=== PATIENT | female | born 1990 | race Caucasian/White ===

== ENCOUNTER → 2019-03-05 | Outpatient (REF) | payer OTHER, SELFPAY ==
[2019-03-05 13:10] LABS: BASO % 0.4 % (0.0-1.0); EOS # 0.1 10^3/uL (0.0-0.5); EOS % 0.9 % (0.0-3.0); HEMATOCRIT 41.7 % (36.0-47.0); HEMOGLOBIN 13.5 g/dl (12.0-15.5); LYMPH # 1.6 10^3/uL (1.5-5.0); LYMPH % 29.5 % (24.0-44.0); MEAN CORPUSCULAR HEMOGLOBIN 29.3 pg (27.0-33.0); MEAN CORPUSCULAR HGB CONC 32.4 g/dl (32.0-36.5); MEAN CORPUSCULAR VOLUME 90.5 fl (80.0-96.0); MONO # 0.4 10^3/uL (0.0-0.8); NEUTROPHILS # 3.3 10^3/uL (1.5-8.5); NEUTROPHILS % 60.8 % (36.0-66.0); PLATELET COUNT, AUTOMATED 278 10^3/uL (150-450); RED BLOOD COUNT 4.61 10^6/uL (4.00-5.40); WHITE BLOOD COUNT 5.5 10^3/uL (4.0-10.0)
[2019-03-05 13:44] LABS: ALBUMIN 4.2 GM/DL (3.2-5.2); ALT/SGPT 22 U/L (12-78); BILIRUBIN,TOTAL 0.7 MG/DL (0.2-1.0); BLOOD UREA NITROGEN 10 MG/DL (7-18); CALCIUM LEVEL 8.9 MG/DL (8.5-10.1); CARBON DIOXIDE LEVEL 26 MEQ/L (21-32); CHLORIDE LEVEL 104 MEQ/L (98-107); CREATININE FOR GFR 0.64 MG/DL (0.55-1.30); GLOMERULAR FILTRATION RATE > 60.0 (>60); GLUCOSE, FASTING 75 MG/DL (70-100); POTASSIUM SERUM 3.9 MEQ/L (3.5-5.1); RHEUMATOID FACTOR QUANT < 10.0 IU/ML (<15.0); SODIUM LEVEL 139 MEQ/L (136-145); TOTAL 25(OH) VITAMIN D 34.6 NG/ML (30.0-100.0); TOTAL PROTEIN 7.5 GM/DL (6.4-8.2)
[2019-03-05 14:29] LABS: ERYTHROCYTE SEDIMENTATION RATE 18 mm/hr (0-20)
[2019-03-06 14:29] LABS: ANTINUCLEAR ANTIBODIES DIRECT Negative (Negative)
== END ==
LOC: M LABNEURO 10:28
PROVIDERS: ATTEND Psychiatry & Neurology Neurology
DX: R51 Headache (principal)

== ENCOUNTER → 2019-05-01 | Outpatient (CLI) | payer OTHER | LOC: M LRY 11:39 | PROVIDERS: ATTEND Advanced Practice Midwife | DX: Z34.81 Encounter for supervision of other normal pregnancy, first trimester (principal); Z3A.08 8 weeks gestation of pregnancy ==

== ENCOUNTER → 2019-05-04 | Outpatient (CLI) | payer OTHER ==
[2019-05-04 17:06] LABS: BASO % 0.1 % (0.0-1.0); EOS # 0.1 10^3/uL (0.0-0.5); EOS % 0.6 % (0.0-3.0); HEMATOCRIT 39.5 % (36.0-47.0); HEMOGLOBIN 12.9 g/dl (12.0-15.5); LYMPH % 21.5 % (24.0-44.0); MEAN CORPUSCULAR HEMOGLOBIN 29.7 pg (27.0-33.0); MEAN CORPUSCULAR HGB CONC 32.7 g/dl (32.0-36.5); MEAN CORPUSCULAR VOLUME 90.8 fl (80.0-96.0); MONO # 0.5 10^3/uL (0.0-0.8); MONO % 5.5 % (0.0-5.0); NEUTROPHILS # 6.6 10^3/uL (1.5-8.5); NEUTROPHILS % 72.1 % (36.0-66.0); PLATELET COUNT, AUTOMATED 257 10^3/uL (150-450); RED BLOOD COUNT 4.35 10^6/uL (4.00-5.40); WHITE BLOOD COUNT 9.1 10^3/uL (4.0-10.0)
[2019-05-04 17:12] LABS: HEMOGLOBIN A1c 5.6 %
[2019-05-04 17:17] LABS: FREE THYROXINE INDEX 3.3 % (1.3-4.8); GLUCOSE CHALLENGE TEST 1 HOUR 95 MG/DL (LESS THAN 140); T UPTAKE 25 % (30-39); THYROXINE (T4) 13.1 UG/DL (4.5-12.0)
[2019-05-04 19:06] LABS: CHLAMYDIA DNA AMPLIFICATION NEGATIVE (NEGATIVE); GC DNA AMPLIFICATION NEGATIVE (NEGATIVE)
[2019-05-06 13:12] LABS: RUBELLA IgG QUALITATIVE IMMUNE (IMMUNE)
[2019-05-06 13:40] LABS: HEPATITIS C VIRUS ABY INDEX 0.1 INDEX (<0.8)
[2019-05-06 13:42] LABS: HIV 1&2 SCREEN CENTAUR NEGATIVE (NEGATIVE)
== END ==
LOC: M LRY 09:11
PROVIDERS: ATTEND Advanced Practice Midwife
DX: Z36.89 Encounter for other specified antenatal screening (principal)

== ENCOUNTER → 2019-05-08 | Outpatient (CLI) | payer OTHER | LOC: M PLALAB 13:02 | PROVIDERS: ATTEND Advanced Practice Midwife | DX: Z34.82 Encounter for supervision of other normal pregnancy, second trimester (principal) ==

== ENCOUNTER 2019-06-08 19:01 | Emergency (ER) | payer OTHER ==
[~2019-06-08] VITALS: Ht 177.8 cm; Wt 95.5 kg
[2019-06-08] MEDS ORDERED: PRENTAB9 PO (19:08)
[2019-06-08] MEDS ORDERED: ACET-683 PO (19:35)
[2019-06-08] MEDS ORDERED: ACETAMINOPHEN 500 MG TAB PO ONE (20:30)
[2019-06-08] MEDS ORDERED: KETOROLAC 30 MG/ML VIAL (J1885) IV ONE ×2 (20:30)
[2019-06-08] MEDS ORDERED: NS 1,000 ML IV ONE (20:30)
[2019-06-08 20:52] LABS: BASO % 0.1 % (0.0-1.0); EOS # 0.1 10^3/uL (0.0-0.5); EOS % 0.3 % (0.0-3.0); HEMOGLOBIN 12.5 g/dl (12.0-15.5); LYMPH # 2.2 10^3/uL (1.5-5.0); LYMPH % 14.4 % (24.0-44.0); MEAN CORPUSCULAR HEMOGLOBIN 30.1 pg (27.0-33.0); MEAN CORPUSCULAR HGB CONC 33.8 g/dl (32.0-36.5); MEAN CORPUSCULAR VOLUME 89.2 fl (80.0-96.0); MONO # 0.7 10^3/uL (0.0-0.8); MONO % 4.9 % (0.0-5.0); NEUTROPHILS % 79.8 % (36.0-66.0); PLATELET COUNT, AUTOMATED 298 10^3/uL (150-450); RED BLOOD COUNT 4.15 10^6/uL (4.00-5.40)
[2019-06-08 21:12] LABS: ERYTHROCYTE SEDIMENTATION RATE 44 mm/hr (0-20)
[2019-06-08 21:23] LABS: ALBUMIN 3.5 GM/DL (3.2-5.2); ALT/SGPT 15 U/L (12-78); BILIRUBIN,DIRECT < 0.1 MG/DL (0.0-0.2); BILIRUBIN,TOTAL 0.3 MG/DL (0.2-1.0); C REACTIVE PROTEIN QUANTITATIV 1.42 MG/DL (0.00-0.30); TOTAL PROTEIN 6.7 GM/DL (6.4-8.2)
[2019-06-08 22:28] VITALS: BP 119/71
== END 2019-06-08 22:46 | disposition home or self-care (01) ==
LOC: M ED 19:01
DX: O99.355 Diseases of the nervous system complicating the puerperium (principal); G43.909 Migraine, unspecified, not intractable, without status migrainosus; Z3A.17 17 weeks gestation of pregnancy; Z88.1 Allergy status to other antibiotic agents; Z88.2 Allergy status to sulfonamides; Z88.8 Allergy status to other drugs, medicaments and biological substances; Z91.013 Allergy to seafood
CPT/HCPCS: 36415; 80047; 80076; 85025; 85652; 86140; 96361; 96374; 99284; J1885

== ENCOUNTER → 2019-06-10 | Outpatient (REF) | payer OTHER ==
[~2019-06-10] MED LIST: ACET-683 PO; PRENTAB9 PO
== END ==
LOC: M SFHCWAGY 13:16
PROVIDERS: ATTEND Advanced Practice Midwife
DX: Z34.82 Encounter for supervision of other normal pregnancy, second trimester (principal)

== ENCOUNTER → 2019-07-01 | Outpatient (CLI) | payer OTHER ==
--- NOTE | 2019-07-02 14:21 | REP ---
Clinical: Anatomical evaluation. Comparison: None . Findings: Examination demonstrates a single live intrauterine in cephalic presentation. motion is identified by technologist. Placenta is noted posterior and grade I without evidence for placenta previa or abruption. Amniotic fluid volume is normal. Cervix measures 3.4 cm in length and appears closed. No evidence for nuchal cord. Possible subcentimeter fibroid in the anterior myometrium. Gestational age by current measurements 19 weeks 6 days with SHAYLEE 11/19/2019 . FHR equals 135 beats per minute. BPD 4.5 cm 19 weeks 4 day HC 17.1 cm 19 weeks 5 days AC 15.8 cm 21 weeks 0 days FL 3.2 cm 20 weeks 0 days HL 3.27 20 weeks 5 days HC/AC ratio 1.08 Estimated weight 350 grams ( 60th percentile). Anatomical assessment demonstrates normal structures including cranium, choroid plexus, cavum, cerebellum/posterior fossa, facial features, lungs, four-chamber heart/ventricular outflow tracts, diaphragm, stomach, cord insertion/three-vessel cord, kidneys/bladder, spine, and extremities. Impression: Single live intrauterine in cephalic presentation demonstrating appropriate estimated weight. Anatomical assessment is complete and normal. No gross abnormalities are identified. Electronically Signed by Antolin Yang MD 07/02/2019 02:13 P
== END ==
LOC: M WHC 10:40
PROVIDERS: ATTEND Advanced Practice Midwife
DX: Z34.82 Encounter for supervision of other normal pregnancy, second trimester (principal); Z3A.19 19 weeks gestation of pregnancy

== ENCOUNTER → 2019-09-04 | Outpatient (REF) | payer OTHER ==
[2019-09-04 15:31] LABS: HEMATOCRIT 33.7 % (36.0-47.0); HEMOGLOBIN 10.9 g/dl (12.0-15.5); MEAN CORPUSCULAR HEMOGLOBIN 29.1 pg (27.0-33.0); MEAN CORPUSCULAR HGB CONC 32.3 g/dl (32.0-36.5); MEAN CORPUSCULAR VOLUME 89.9 fl (80.0-96.0); PLATELET COUNT, AUTOMATED 296 10^3/uL (150-450); RED BLOOD COUNT 3.75 10^6/uL (4.00-5.40); WHITE BLOOD COUNT 12.6 10^3/uL (4.0-10.0)
== END ==
LOC: M PLALAB 12:16
PROVIDERS: ATTEND Advanced Practice Midwife
DX: Z34.90 Encounter for supervision of normal pregnancy, unspecified, unspecified trimester (principal)

== ENCOUNTER 2019-10-17 10:51 | Outpatient (CLI) | payer OTHER ==
[~2019-10-17] VITALS: Ht 177.8 cm; Wt 108.3 kg
[2019-10-17] MEDS ORDERED: EFFE37.5 PO (11:10)
[2019-10-17] MEDS ORDERED: TYLENOL PM PO (11:13)
[2019-10-17 11:16] VITALS: BP 104/59
--- NOTE | 2019-10-18 09:13 | IPN ---
DATE OF SERVICE: 10/17/2019 29-year-old, (G) 3, para (P) 1-0-1-1 female at 36 and 0/7 weeks gestation, expected date of confinement (EDC) 11/14/2019, who presents with decreased movement for the last 3-4 hours. She has had one movement in that time. Normally, the baby moves quite frequently. She tried drinking juice and concentrating solely on the movements. OBJECTIVE: Blood pressure 105/64. Pulse 84. She is in no apparent distress. Head and Neck Exam: Normal. Abdomen nontender, gravid. heart tones Category 1. Contractions: None. BEDSIDE ULTRASOUND: Vertex fetus. Numerous movements observed. Normal amniotic fluid level. ASSESSMENT: 29-year-old, G3, P1 female at 36 and 0/7 weeks gestation with reassuring testing. PLAN: Patient discharged home. She will followup in the office this week as scheduled.
== END 2019-10-17 12:00 | disposition home or self-care (01) ==
LOC: M LDO 10:51
PROVIDERS: ATTEND Specialist
DX: O36.8130 Decreased fetal movements, third trimester, not applicable or unspecified (principal); Z3A.36 36 weeks gestation of pregnancy
CPT/HCPCS: 59025; 76815; G0378; G0463

== ENCOUNTER → 2019-10-21 | Outpatient (REF) | payer OTHER ==
[~2019-10-21] MED LIST changes: +EFFE37.5 PO; +PROM25TA12 PO; +TYLENOL PM PO
== END ==
LOC: M SFHCWAGY 17:09
PROVIDERS: ATTEND Advanced Practice Midwife
DX: O09.293 Supervision of pregnancy with other poor reproductive or obstetric history, third trimester (principal)

== ENCOUNTER 2019-10-24 13:17 | Outpatient (CLI) | payer OTHER ==
[~2019-10-24] VITALS: Ht 177.8 cm; Wt 109.4 kg
[~2019-10-24 13:17] MED LIST changes: -PROM25TA12 PO
[2019-10-24 13:35] VITALS: BP 127/76
[2019-10-24 14:20] VITALS: BP 141/73
[2019-10-24] MEDS ORDERED: METOCLOPRAMIDE 10 MG TAB PO ONE (14:30)
[2019-10-24 15:11] LABS: HEMATOCRIT 31.2 % (36.0-47.0); HEMOGLOBIN 9.9 g/dl (12.0-15.5); MEAN CORPUSCULAR HEMOGLOBIN 27.8 pg (27.0-33.0); MEAN CORPUSCULAR HGB CONC 31.7 g/dl (32.0-36.5); MEAN CORPUSCULAR VOLUME 87.6 fl (80.0-96.0); PLATELET COUNT, AUTOMATED 295 10^3/uL (150-450); RED BLOOD COUNT 3.56 10^6/uL (4.00-5.40); WHITE BLOOD COUNT 10.3 10^3/uL (4.0-10.0)
[2019-10-24 15:35] LABS: ALBUMIN 2.5 GM/DL (3.2-5.2); ALT/SGPT 23 U/L (12-78); BILIRUBIN,TOTAL 0.2 MG/DL (0.2-1.0); BLOOD UREA NITROGEN 8 MG/DL (7-18); CALCIUM LEVEL 8.2 MG/DL (8.5-10.1); CARBON DIOXIDE LEVEL 21 MEQ/L (21-32); CHLORIDE LEVEL 109 MEQ/L (98-107); CREATININE FOR GFR 0.51 MG/DL (0.55-1.30); GLOMERULAR FILTRATION RATE > 60.0 (>60); GLUCOSE, FASTING 98 MG/DL (70-100); LDH LACTATE DEHYDROGENASE 125 U/L (84-246); POTASSIUM SERUM 3.9 MEQ/L (3.5-5.1); SODIUM LEVEL 140 MEQ/L (136-145); URIC ACID 3.9 MG/DL (2.6-6.0)
[2019-10-24 15:56] LABS: CREATININE,RANDOM URINE 93.8 MG/DL; TOTAL PROTEIN,RANDOM URINE 15.7 MG/DL (0.0-12.0)
[2019-10-24 16:00] VITALS: BP 109/52
[2019-10-24 16:42] VITALS: BP 125/75
[2019-10-24] MEDS ORDERED: PROM25TA12 PO (17:31)
== END 2019-10-24 17:24 | disposition home or self-care (01) ==
LOC: M LDO 13:17
PROVIDERS: ATTEND Obstetrics & Gynecology
DX: O99.89 Other specified diseases and conditions complicating pregnancy, childbirth and the puerperium (principal); R51 Headache; Z3A.37 37 weeks gestation of pregnancy
CPT/HCPCS: 36415; 59025; 76815; 80053; 82570; 83615; 84156; 84550; 85027; G0378; G0463

== ENCOUNTER → 2019-11-05 | Outpatient (REF) | payer OTHER ==
[~2019-11-05] MED LIST changes: +ACET25TA12 PO; +COLA100C5 PO; +IBUP80TA PO; +OMEP40CA97 PO; +PROM25TA12 PO
== END ==
LOC: M PLALAB 09:08
PROVIDERS: ATTEND Advanced Practice Midwife
DX: O09.293 Supervision of pregnancy with other poor reproductive or obstetric history, third trimester (principal)
CPT/HCPCS: 36415; 59426; 87389; G0463

== ENCOUNTER 2019-11-11 07:36 | Inpatient (IN) | payer OTHER ==
[~2019-11-11] VITALS: Ht 177.8 cm; Wt 112.4 kg
[2019-11-11] VITALS (30 sets, daily range): BP systolic 96–146; BP diastolic 55–91
[~2019-11-11 07:36] MED LIST changes: -ACET25TA12 PO; -COLA100C5 PO; -IBUP80TA PO; -OMEP40CA97 PO
[2019-11-11] MEDS ORDERED: OMEP40CA97 PO (08:26)
[2019-11-11] MEDS ORDERED: ACET25TA12 PO (08:27)
[2019-11-11] MEDS ORDERED: LACTATED RINGER'S 1000 ML IV STA (09:35)
--- NOTE | 2019-11-11 09:53 | HPEPDOC ---
Obstetrical History & Physical General Date of Admission Nov 11, 2019 at 07:36 Primary Care Physician: LINDA GOMEZ CNM History of Present Illness Patient is a 29-year-old female who is a [id number] at 39.4 weeks gestation with an SHAYLEE of 11/14/19 based off of her LMP and consistent with her first trimester ultrasound. She initiated care in her first trimester with [facility]. Her has been complicated by anxiety, depression, and debilitating migraines. She also has a history of a shoulder dystocia with her last . She presents to L&D today for an elective IOL. She reports active movement. She denies contractions, leaking of fluid, or vaginal bleeding. Chief Complaint: Induction of labor Information Provided By: Patient Age: 29 : 3 Term: 1 Pre-term: 0 Abortions: 1 Livin Care Care: Good Care Dating Final EDC: Nov 14, 2019 Final EDC by: LMP EGA at Admission: 39.4 Antepartum Course Diagnos(e)s History of shoulder dystocia Height (inches): 29 Pre- weight (lbs.): 211 Admission Weight (lbs.): 247 Change in Weight (lbs.): 36 Past Medical History Past Obstetrical History : Gestation: 41.6 Type of Delivery: Spontaneous Vaginal Del. (04/2017) Sex of : Female (10 lbs) Complications: Yes (shoulder dystocia ) [employer]GER [employer] History: Spontaneous Past Medical History Medical History migraines guttate psoriasis anxiety/depression ADHD OCD Surgical History: Denies/None Family History Significant Family History: Hypertension, Other (thyroid disease, Crohn's disease, fibromyalgia.) Social History Marital Status: Family situation: Spouse/partner home Psychosocial History: Anxiety, Att. deficit disorder, Depression, Obsess/compul disorder * Smoker: non-smoker Alcohol: Denies Drugs: denies Abuse Violence Screening Have you been hit/kicked/slapp: No Have you been sexually assault: No Imunizations Tdap status: declined Allergies Coded Allergies: Iodine and Iodide Containing Produc (Verified Allergy, Intermediate, VOMITTING, 11/11/19) shellfish derived (Verified Allergy, Intermediate, VOMITTING, 11/11/19) Penicillins (Verified Allergy, Mild, HIVES, 11/11/19) amoxicillin (Verified Allergy, Mild, HIVES, 11/11/19) erythromycin base (Verified Allergy, Unknown, 06/08/19) SINCE BABY Sulfa (Sulfonamide Antibiotics) (Verified Adverse Reaction, Mild, 06/08/19) VOMITING Medications Scheduled Omeprazole (Omeprazole) 40 Mg Capsule.dr, 20 MG PO DAILY No.137/Iron/Folic Acd ( Vitamin Tablet) 1 Each Tablet, 1 TAB PO DAILY Venlafaxine HCl (Effexor Xr) 37.5 Mg Cap.er.24h, 37.5 MG PO DAILY Scheduled PRN Promethazine HCl (Promethazine HCl) 25 Mg Tablet, 1 TAB PO Q6HP PRN for nausea/vomiting Miscellaneous Medications Acetaminophen/Diphenhydramine (Acetaminophen Pm Caplet) 1 Each Tablet, 2 TAB PO Physical Examination Physical Examination GENERAL: Alert and oriented times three. BREAST: . ABDOMEN: Gravid and non-tender to touch. FETUS: Is vertex (VTX) by sterile vaginal examination (SVE), fetus is vertex (VTX) by Mike. HEART RATE: Regular rate and rhythm. LUNGS: Clear to auscultation (CTA). EXTREMITIES: No edema. No clonus. Deep tendon reflexes (DTRs) + 2. Laboratory Data 24H [facility] Laboratory Tests 2 11/11/19 07:45: Serology Scanned Report Hepatitis B Testing Urine Culture: No Growth Pertinent Laboratoy Data Blood Type: A+ RBC Antibody Screen: Negative HIV: Negative Hepatitis B: Negative Hepatitis C: Negative Rubella: Immune Group B Streptococcus: Negative Glucose Tolerance Test: 116 Diag/Inter Therapy NIPT low risk normal female Vaginal Examination Dilation: 2cm Effacement: 60% Station: -2 Cervical Consistency: Soft Cervical Position: Middle Presentation: Cephalic presentation Position: Vertex (occiput) Assessment Heart Rate (FHR): 130 Variability: Moderate Accelerations: Positive Decelerations: None Tocometer Contractions: Yes Frequency: other (2-6 minutes) Multi-drug resistant Organism: No history of MDRO Assessment/Plan Assessment IUP at 39.4 weeks gestation GBS negative Category I FHR tracing Elective IOL Plan Admit to L&D. OOB ad armani. Diet: regular then switch to clears once IV Pitocin has been started. Group B Streptococcus (GBS) negative. Labs and intravenous (IV) per unit protocol. Counseled on Cytotec and IV Pitocin for induction of labor. Anesthesia consult per patient's request. Lactated Ringers (LR): Bolus 800 mL prior to epidural, then at 125 mL/hr. Cytotec ordered PO to start induction. Anticipate cervical ripening. C-S as appropriate. LINDA GOMEZ CNM Nov 11, 2019 09:53
[2019-11-11] MEDS ORDERED: miSOPROStol 50 MCG 1/2 TAB (S0191) PO ONE (10:00)
[2019-11-11 10:01] LABS: HEMATOCRIT 31.7 % (36.0-47.0); HEMOGLOBIN 9.9 g/dl (12.0-15.5); MEAN CORPUSCULAR HEMOGLOBIN 26.9 pg (27.0-33.0); MEAN CORPUSCULAR HGB CONC 31.2 g/dl (32.0-36.5); MEAN CORPUSCULAR VOLUME 86.1 fl (80.0-96.0); PLATELET COUNT, AUTOMATED 293 10^3/uL (150-450); RED BLOOD COUNT 3.68 10^6/uL (4.00-5.40); WHITE BLOOD COUNT 8.3 10^3/uL (4.0-10.0)
[2019-11-11] MEDS ORDERED: OXYTOCIN DRIP 30 UNITS in IV 1 EA IV SCH (14:30)
--- NOTE | 2019-11-11 14:44 | IPNPDOC ---
Obstetrical Progress Note Date of Service Nov 11, 2019 Subjective Patient reports she is feeling her contractions. Objective Vital Signs Date Time Temp Pulse Resp B/P (MAP) Pulse Ox O2 Delivery O2 Flow Rate FiO2 11/11/19 11:44 98.0 82 18 136/84 (101) Assessment Heart Rate (FHR): 120 Variability: Moderate Accelerations: Positive Decelerations: Early Heart Rate Tracing: Category I Tocometer Contractions: Yes Frequency: regular Assessment and Plan EGA at Admission: 39.4 Status: Reassuring Group B Streptococcus: Negative Anticipate: Vaginal Delivery Additional Comments IV Pitocin ordered and to be started per order. Counseled patient and on plan of care. LINDA GOMEZ CNM Nov 11, 2019 14:44
[2019-11-11] MEDS: ACETAMINOPHEN 500 MG TAB PO PRN (16:00)
[2019-11-11] MEDS: LR 1,000 ML IV SCH ×2 (16:01→21:46)
[2019-11-11] MEDS ORDERED: FENTANYL 2MCG/ML ROPIVACAINE 0.2% IN 0.9% NACL 100ML IVBAG As Ordered ONE (22:27)
[2019-11-12] VITALS (35 sets, daily range): BP systolic 96–146; BP diastolic 52–78
--- NOTE | 2019-11-12 00:13 | IPNPDOC ---
Obstetrical Progress Note Date of Service Nov 12, 2019 Subjective Patient is comfortable with her epidural. Objective Vital Signs Date Time Temp Pulse Resp B/P (MAP) Pulse Ox O2 Delivery O2 Flow Rate FiO2 11/11/19 19:03 90 18 117/64 (81) 11/11/19 18:33 98.3 Assessment Heart Rate (FHR): 130 Variability: Moderate Accelerations: Positive Decelerations: None Heart Rate Tracing: Category I Tocometer Contractions: Yes Frequency: regular, other (every 2-3 minutes) Sterile Vaginal Examination Dilation: 4 cm Effacement (%): other (75%) Station: -2 Cervical Consistency: Soft Cervical Position: Anterior Postion/Presentation: Cephalic presentation Assessment and Plan Age: 29 : 3 Term: 1 Pre-term: 0 Abortions: 1 Livin EGA at Admission: 39.4 Weeks & Days 39.5 Status: Reassuring Group B Streptococcus: Negative Anticipate: Vaginal Delivery Additional Comments IV Pitocin is at 16 mu/min. AROM to a small mount of clear fluid. LINDA GOMEZ CNM Nov 12, 2019 00:13
[2019-11-12] MEDS ORDERED: ePHEDrine SULFATE 25 MG/5 ML(5MG/ML) SYRINGE IV PRN (00:15)
[2019-11-12] MEDS ORDERED: REFRIGERATOR IV KEYS XX PRN (00:15)
[2019-11-12] MEDS ORDERED: EPIDURAL COMMENT XX SCH (00:15)
[2019-11-12] MEDS ORDERED: NALOXONE INJ 0.4MG/1ML VIAL (J2310 PER 1MG) IV PRN (00:15)
[2019-11-12] MEDS ORDERED: diphenhydrAMINE 50MG/ML VIAL (J1200) IV PRN (00:15)
[2019-11-12] MEDS ORDERED: ONDANSETRON 4MG/2ML VIAL IV PRN (00:15)
[2019-11-12] MEDS ORDERED: FENTANYL/ROPIVACAINE/NACL BAG 100 ML EPIDURAL SCH (00:15)
[2019-11-12] MEDS ORDERED: LACTATED RINGER'S 1000 ML IV PRN (00:15)
[2019-11-12] MEDS ORDERED: EPIDURAL/PCA KEYS XX PRN (00:15)
[2019-11-12] MEDS: ACETAMINOPHEN 500 MG TAB PO PRN ×2 (00:17→14:15)
[2019-11-12] MEDS ORDERED: OXYTOCIN DRIP 30 UNITS in IV 1 EA IV SCH (08:28)
[2019-11-12] MEDS ORDERED: IBUPROFEN 600MG TAB PO PRN (08:30)
[2019-11-12] MEDS ORDERED: DOCUSATE SODIUM 100 MG CAP PO PRN (08:30)
[2019-11-12] MEDS ORDERED: RHOGAM 300 MCG (1500 IU) INJ (J2790) IM SCH (08:30)
[2019-11-12] MEDS ORDERED: ACETAMINOPHEN TAB 650MG DOSE (2X325MG) PO PRN (08:30)
[2019-11-12] MEDS ORDERED: MEASLES,MUMPS,RUBELLA VACCINE INJ (MMR-II) (90707) SC SCH (08:30)
[2019-11-12] MEDS ORDERED: ANUSOL HC CREAM 30GM TOP PRN (08:30)
[2019-11-12] MEDS ORDERED: METHYLERGONOVINE MALEATE 0.2 MG TAB PO PRN (08:30)
[2019-11-12] MEDS ORDERED: DIBUCAINE 1% OINTMENT 30GM TOP PRN (08:30)
--- NOTE | 2019-11-12 08:48 | DNPDOC ---
[facility] Delivery Note Delivery Note DATE OF DELIVERY: 11/12/19 at 0742 PREDELIVERY DIAGNOSIS: 39-5/7 weeks' gestation and labor. POST DELIVERY DIAGNOSIS: Delivered. PROCEDURE: Spontaneous vaginal delivery. SOLDERER PRODUCTION LINE: Linda Valentino CNM, VALENCIA ANESTHESIA: epidural. ESTIMATED BLOOD LOSS: 300 mL. FINDINGS: 8 pounds 6 ounces; 3790 grams; female infant, Score 8/9, shoulder dystocia x 20 seconds resolved with Ruby and corkscrew maneuver. DELIVERY SUMMARY: Patient is a 29-year-old female who is now a ho presented to L&D yesterday for an IOL due to a history of a shoulder dystocia. She received 1 dose of Cytotec and IV Pitocin for induction. The patient requested an epidural for pain management. She progressed to fully dilated at 0730 and pushed to a living female in the OPAL position with restitution to LOT. A shoulder dystocia was noted and resolved within 20 seconds after performing Ruby and corkscrew maneuver. The anterior shoulder delivered and the corpus immediately followed. The baby was placed [id number] active and crying with stimulation. The cord was clamped x2 after pulsation ceased and cut by the FOB. A 3-vessel cord was noted. The placenta delivered spontaneously and intact at 0748. Uterine hemostasis was achieved via rapid infusion of IV Pitocin and fundal massage. The vagina, perineum, and cervix was inspected and found to have a first degree perineal laceration. The laceration was repaired with a 3.[address]-1. Mom plans to breastfeed and breastfed in the room. They are naming her Nani. All counts of instruments and sponges are correct. LINDA VALENTINO CNM Nov 12, 2019 08:48
[2019-11-12] MEDS ORDERED: PRENATAL VITAMINS CHEWABLE TABLET PO SCH (09:00)
[2019-11-12] MEDS: VENLAFAXINE **XR** 37.5 MG CAPSULE PO SCH (09:49)
[2019-11-12] MEDS: IBUPROFEN 800 MG TAB PO PRN ×2 (09:49→19:54)
[2019-11-13] MEDS: ACETAMINOPHEN 500 MG TAB PO PRN (01:32)
[2019-11-13 06:28] VITALS: BP 106/59
[2019-11-13] MEDS ORDERED: ACET-683 PO (08:45)
[2019-11-13] MEDS ORDERED: IBUP80TA PO (08:45)
[2019-11-13] MEDS ORDERED: COLA100C5 PO (08:45)
[2019-11-13] MEDS: VENLAFAXINE **XR** 37.5 MG CAPSULE PO SCH (09:12)
== END 2019-11-13 13:51 | disposition home or self-care (01) | DRG 807 ==
LOC: M LDI 07:36 → M OBS 11-12 10:35
PROVIDERS: ADMIT Advanced Practice Midwife; ATTEND Advanced Practice Midwife
PROC: 3E0P7GC Introduction of Other Therapeutic Substance into Female Reproductive, Via Natural or Artificial Opening (ICD-10-PCS; 2019-11-11)
PROC: 10E0XZZ Delivery of Products of Conception, External Approach (ICD-10-PCS; principal; 2019-11-12)
PROC: 0HQ9XZZ Repair Perineum Skin, External Approach (ICD-10-PCS; 2019-11-12)
PROC: 10907ZC Drainage of Amniotic Fluid, Therapeutic from Products of Conception, Via Natural or Artificial Opening (ICD-10-PCS; 2019-11-12)
DX: O99.354 Diseases of the nervous system complicating childbirth (principal); Z37.0 Single live birth; O99.344 Other mental disorders complicating childbirth; F32.9 Major depressive disorder, single episode, unspecified; F41.9 Anxiety disorder, unspecified; G43.909 Migraine, unspecified, not intractable, without status migrainosus; Z3A.39 39 weeks gestation of pregnancy; O66.0 Obstructed labor due to shoulder dystocia; O70.0 First degree perineal laceration during delivery

== ENCOUNTER → 2020-02-05 | Outpatient (CLI) | payer OTHER ==
[~2020-02-05] MED LIST changes: +ACET25TA12 PO; +COLA100C5 PO; +IBUP80TA PO; +OMEP40CA97 PO
[2020-02-05 15:57] LABS: HEMATOCRIT 42.6 % (36.0-47.0); HEMOGLOBIN 13.2 g/dl (12.0-15.5); MEAN CORPUSCULAR HEMOGLOBIN 26.8 pg (27.0-33.0); MEAN CORPUSCULAR VOLUME 86.6 fl (80.0-96.0); PLATELET COUNT, AUTOMATED 294 10^3/uL (150-450); RED BLOOD COUNT 4.92 10^6/uL (4.00-5.40); WHITE BLOOD COUNT 10.8 10^3/uL (4.0-10.0)
[2020-02-05 16:10] LABS: ALBUMIN 3.9 GM/DL (3.2-5.2); ALT/SGPT 35 U/L (12-78); BILIRUBIN,TOTAL 0.2 MG/DL (0.2-1.0); BLOOD UREA NITROGEN 16 MG/DL (7-18); CARBON DIOXIDE LEVEL 27 MEQ/L (21-32); CHLORIDE LEVEL 107 MEQ/L (98-107); CREATININE FOR GFR 0.68 MG/DL (0.55-1.30); FERRITIN 9 NG/ML (8-252); GLOMERULAR FILTRATION RATE > 60.0 (>60); GLUCOSE, FASTING 97 MG/DL (70-100); POTASSIUM SERUM 4.1 MEQ/L (3.5-5.1); SODIUM LEVEL 140 MEQ/L (136-145); THYROID STIMULATING HORMONE 0.963 uIU/ML (0.358-3.740); TOTAL PROTEIN 7.4 GM/DL (6.4-8.2)
[2020-02-05 16:11] LABS: TOTAL 25(OH) VITAMIN D 21.4 NG/ML (30.0-100.0)
[2020-02-05 16:12] LABS: TESTOSTERONE 17 NG/DL (14-76); VITAMIN B12 LEVEL 724 PG/ML (247-911)
[2020-02-05 22:42] LABS: HEMOGLOBIN A1c 5.4 %
== END ==
LOC: M PLALAB 13:05
PROVIDERS: ATTEND Advanced Practice Midwife
DX: R63.5 Abnormal weight gain (principal); F41.1 Generalized anxiety disorder; L68.0 Hirsutism